=== PATIENT | male | born 2000 | race Caucasian/White ===

== ENCOUNTER 2023-10-27 12:24 | Emergency (ER) | payer SELFPAY ==
[~2023-10-27] VITALS: Ht 167.6 cm; Wt 67.0 kg
[2023-10-27 12:26] VITALS: BP 133/77; PULSE 94; RESP 18; TEMP 98.3; O2SAT 100
== END 2023-10-27 13:47 | disposition left against medical advice (07) ==
LOC: ER 12:37
DX: R00.2 Palpitations (principal); F12.10 Cannabis abuse, uncomplicated
CPT/HCPCS: 71045; 99283